=== PATIENT | male | born 1995 | race Hispanic/Latino ===

== ENCOUNTER → 2019-11-11 | Day surgery (SDC) | payer OTHER ==
[2019-11-07 15:40] LABS: BASOPHILS # (AUTO) 0.1 (0.0-0.1); BASOPHILS % 0.7 % (0.0-1.0); EOSINOPHILS # (AUTO) 1.5 (0.0-0.4); EOSINOPHILS % 8.6 % (0.0-6.0); HEMATOCRIT 37.8 % (38.2-49.6); HEMOGLOBIN 11.6 g/dL (14.0-18.0); LYMPHOCYTES # (AUTO) 2.2 (1.0-3.2); LYMPHOCYTES % 12.4 % (18.0-39.1); MEAN CORPUSCULAR HEMOGLOBIN 24.9 pg (28-32); MEAN CORPUSCULAR HGB CONC 30.7 g/dL (31-35); MEAN CORPUSCULAR VOLUME 81.3 fL (81-99); MONOCYTES # (AUTO) 1.2 (0.2-0.8); MONOCYTES % 6.9 % (4.4-11.3); NEUTROPHILS # (AUTO) 12.4 (2.1-6.9); NEUTROPHILS % 70.7 % (38.7-80.0); PLATELET COUNT 454 x10e3/uL (140-360); RED BLOOD COUNT 4.65 x10e6/uL (4.3-5.7); RED CELL DISTRIBUTION WIDTH 14.5 % (11.7-14.4)
[2019-11-07 16:03] LABS: ALANINE AMINOTRANSFERASE 24 IU/L (0-55); ALBUMIN 3.4 g/dL (3.5-5.0); ALBUMIN/GLOBULIN RATIO 0.7 (0.8-2.0); ALKALINE PHOSPHATASE 116 IU/L (40-150); ANION GAP 12.1 mmol/L (8-16); BLOOD UREA NITROGEN 5 mg/dL (7-26); BUN/CREATININE RATIO 5 (6-25); CALCIUM 9.1 mg/dL (8.4-10.2); CARBON DIOXIDE 26 mmol/L (22-29); CHLORIDE 103 mmol/L (98-107); CREATININE, SERUM 0.96 mg/dL (0.72-1.25); EST GLOMERULAR FILTRATION RATE > 60 ML/MIN (60-); GLUCOSE 95 mg/dL (74-118); POTASSIUM 4.1 mmol/L (3.5-5.1); SODIUM 137 mmol/L (136-145)
[2019-11-07 20:58] LABS: EOSINOPHILS % (MANUAL) 7 % (0-7); LYMPHOCYTES % (MANUAL) 10 % (19-48); MONOCYTES % (MANUAL) 5 % (3.4-9.0); NEUTROPHILS % (MANUAL) 78 % (40-74)
[~2019-11-11] MED LIST: ACETAMINOPHEN 1000 MG/100 ML IV ONE; BUPIVACAINE 0.25% 30ML SDV INJ ONE; CEFAZOLIN SOD 1 GM VIAL ONE; CEPHALEXIN500 MG PO; DEXAMETHASONE SOD PHOS INJ 4 MG/ML VIAL ONE; FENTANYL CITRATE/PF 100MCG/2 ML INJ ONE; GLYCOPYRROLATE INJ 0.2 MG/ML VIAL ONE; LIDOCAINE 1% W/EPINEPHRINE 20 ML VIAL ONE; LIDOCAINE HCL 2% LOCAL INJ 5 ML SDV VIAL INJ ONE; MIDAZOLAM HCL 2 MG/2 ML VIAL ONE; NEOSTIGMINE 1 MG/ML 10ML VIAL ONE; ONDANSETRON HCL INJ 2MG/ML 2ML 2 MG/ML VIAL ONE; PROPOFOL IV EMULSION 10 MG/ML 20 ML VIAL ONE; ROCURONIUM BROMIDE 10 MG/ML 5ML VIAL IV ONE; SEVOFLURANE INHAL SOLN 250 ML PEN BTL ONE; TYLENOL WITH C1 EACH PO
--- OUTSIDE RECORDS SUMMARY | 2019-11-11 09:44 | XMS REPORT ---
Author Author Admin, [place] Organization Unknown Address Unknown Phone Unavailable Problems No Known Problems ENCOUNTERS Date Type Provider Location Encounter Diagnosis - Ambulatory Encounter COVID-19 Desktop Roxy Ghanshyam [facility] UNK - Ambulatory Encounter Lelo Lopez [facility] UNK - Ambulatory Encounter Brady Lopez [facility] UNK - Ambulatory Encounter COVID-19 Desktop Charissa Mondragon Sus[facility] Allen [facility] UNK - Ambulatory Encounter Zoya Paez [facility] UNK VITAL SIGNS Date Observation Value Provider oxygen saturation, oximetry 97 % Charissa Mondragon " temperature E&M 99.9 [degF] Charissa Mondragon Allergies No Known Allergy Information REASON FOR REFERRAL No Information Available RESULTS Date Observation Value Provider Reference Range Interpretation Location influenza B virus antigen negative Charissa Mondragon " influenza virus A antigen negative Charissa Mondragon HISTORY OF IMMUNIZATIONS No Information Available Medications No Known Medication Information SOCIAL HISTORY No Information Available FUNCTIONAL STATUS No Information Available MENTAL STATUS No Information Available MEDICAL EQUIPMENT No Information Available FAMILY HISTORY No Information Available INSURANCE PROVIDERS No Information Available ADVANCE DIRECTIVES No Information Available TREATMENT PLAN No Information Available HISTORY OF PROCEDURES No Information Available GOALS No Information Available HEALTH CONCERNS No Information Available
--- OUTSIDE RECORDS SUMMARY | 2019-11-11 09:44 | XMS REPORT ---
Author Author Admin, [place] Organization Unknown Address Unknown Phone Unavailable Problems No Known Problems ENCOUNTERS Date Type Provider Location Encounter Diagnosis - Ambulatory Encounter COVID-19 Desktop Charissa Mondragon [facility] UNK - Ambulatory Encounter Zoya Paez [facility] UNK VITAL SIGNS Date Observation Value Provider [...]
--- OUTSIDE RECORDS SUMMARY | 2019-11-11 09:44 | XMS REPORT ---
Author Author Admin, [place] Organization Unknown Address Unknown Phone Unavailable Problems No Known Problems ENCOUNTERS Date Type Provider Location Encounter Diagnosis - Ambulatory Encounter Theresa Morrissey [facility] Contact Center UNK - Ambulatory Encounter [facility]elo Lopez [facility] - Ambulatory Encounter COVID-19 Desktop Charissa Mondragon Sus[facility] Allen [facility] UNK - Ambulatory Encounter Zoya Paez [facility] UNK VITAL SIGNS Date Observation [...]
--- NOTE | 2019-11-11 13:50 | Operative Report ---
DATE OF PROCEDURE: 11/11/2019 SURGEON: Rm Conrad MD PREOPERATIVE DIAGNOSIS: Right neck adenopathy, rule out lymphoma. POSTOPERATIVE DIAGNOSIS: Right neck adenopathy, rule out lymphoma. Pending permanent sections. OPERATION PERFORMED: Right supraclavicular lymphadenectomy. PHYSICIAN SPECIALIST: JESUS June. ANESTHESIA: General. COMPLICATIONS: None. ESTIMATED BLOOD LOSS: Minimal. INDICATION: With the patient lying in bed in the supine position under good general anesthesia, the right neck and chest were prepped with Betadine solution and draped in the usual manner. The area overlying the supraclavicular region was then infiltrated with 0.25% Marcaine with epinephrine. An incision was made, carried down through the subcutaneous tissue and through the platysma and immediately underneath a bundle of large lymph nodes was identified, this was slowly and carefully from the deep musculature and also from the jugular vein. All bleeding points were either electrocoagulated or ligated with 2-0 Vicryl. Hemostasis was ascertained and the specimen was removed, and sent for pathological examination. The whole area was thoroughly irrigated. Hemostasis was ascertained and the wound was then closed in layers. The platysma was reapproximated with 3-0 Vicryl. The subcutaneous tissue was approximated with 4-0 Vicryl and the skin was closed with subcuticular 5-0 Vicryl. Benzoin, Steri-Strips, and dressings were applied. The sponge, lap, and needle counts were correct. The patient tolerated the procedure well and returned to the recovery room in stable condition. Rm Conrad MD JLR/MODL /[id number]
[2019-11-11 14:30] VITALS: BP 122/90
== END | disposition home or self-care (01) ==
LOC: OR 09:42
PROVIDERS: ATTEND Surgery
DX: C81.11 Nodular sclerosis Hodgkin lymphoma, lymph nodes of head, face, and neck (principal)
CPT/HCPCS: 36415; 38510; 80053; 85025; 88305; J0131; J0690; J1100; J2001; J2250; J2405; J2704; J2710; J3010; 88342

== ENCOUNTER → 2019-11-17 | Day surgery (SDC) | payer OTHER ==
[~2019-11-17] MED LIST changes: -ACETAMINOPHEN 1000 MG/100 ML IV ONE; -CEFAZOLIN SOD 1 GM VIAL ONE; -GLYCOPYRROLATE INJ 0.2 MG/ML VIAL ONE; +HEPARIN SOD (PORCINE) 5,000 UNIT/ML VIAL ONE; +HYDROCODONE/APAP 7.5MG-325MG 1 EA TAB ONE; -LIDOCAINE 1% W/EPINEPHRINE 20 ML VIAL ONE; +LIDOCAINE HCL 1% LOCAL INJ 20 ML VIAL ONE; -NEOSTIGMINE 1 MG/ML 10ML VIAL ONE; -ROCURONIUM BROMIDE 10 MG/ML 5ML VIAL IV ONE; +SODIUM CHLORIDE 0.9% 500ML 500 ML ONE
--- NOTE | 2019-11-17 11:26 | Operative Report ---
DATE OF PROCEDURE: 11/17/2019 SURGEON: Rm Conrad MD PREOPERATIVE DIAGNOSIS: Lymphoma needing IV access for chemotherapy. POSTOPERATIVE DIAGNOSIS: Lymphoma needing IV access for chemotherapy. OPERATION PERFORMED: Placement of left subclavian venous access port under C-arm guidance. INSURANCE INSPECTOR: JESUS Juen. ANESTHESIA: General. COMPLICATIONS: None. ESTIMATED BLOOD LOSS: Minimal. DESCRIPTION OF PROCEDURE: With the patient lying in bed in the Trendelenburg position under good general anesthesia, the left chest and neck were prepped with Betadine solution and draped in the usual manner. A standard left subclavian venipuncture was performed without any difficulty and a guidewire was advanced into the central venous position. Using the C-arm, the left lung was found to be fully expanded and the tip of the wire was confirmed to be at the level of the superior vena cava. A pocket was then created in the left anterior chest and the catheter was then threaded to the subclavian position. The catheter was cut to the appropriate length. The reservoir was then anchored to the anterior chest wall using interrupted sutures of 2-0 silk. The reservoir and catheter were fully heparinized. The peel-away sheath was then placed over the guidewire. The guidewire was removed and the catheter was threaded through the peel-away sheath introducer and the peel-away sheath was removed. There was good blood return and the reservoir and catheter were fully heparinized. Using the C-arm, the tip of the catheter was confirmed to be at the level of the superior vena cava and the left lung was fully expanded. The wounds were then closed in layers. Subcutaneous tissue was approximated with 3-0 and 4-0 Vicryl and the skin was closed with subcuticular 5-0 Vicryl. Benzoin, Steri-Strips and dressings were applied. The sponge, lap, and needle count was correct. The patient tolerated the procedure well and returned to the recovery room in stable condition. MD CHARO Diehl/MODL /[id number]
[2019-11-17 11:45] VITALS: BP 110/78
== END | disposition home or self-care (01) ==
LOC: OR 07:34
PROVIDERS: ATTEND Surgery
DX: C85.90 Non-Hodgkin lymphoma, unspecified, unspecified site (principal)
CPT/HCPCS: 36561; 76000; C1751; J1100; J1644; J2001; J2250; J2405; J2704; J3010; J7040